=== PATIENT | male | born 1990 | race Caucasian/White ===

== ENCOUNTER 2017-09-20 11:45 | Emergency (ER) | payer BC ==
[~2017-09-20] VITALS: Ht 182.9 cm; Wt 66.2 kg
[~2017-09-20 11:45] MED LIST: BACTRIM,SEPT1 TABLET PO; CLEOCIN150 MG PO; FIORICET,ESG1 TABLET PO; FLEXERIL10 MG PO; KEFLEX500 MG PO; MEDROL DOSEPAK4 MG PO; MOTRIN800 MG PO; NAPROSYN500 MG PO; NOHOMEMEDS; PRILOSEC40 MG PO; VALIUM5 MG PO; VICODIN 5-3001 EACH PO; ZOFRAN ODT4 MG PO; ZOFRAN4 MG PO; nohome
[2017-09-20 12:27] LABS: HEMATOCRIT 37.7 % (38.0-50.0); HEMOGLOBIN 13.4 G/DL (12.5-16.6); MCH 28.6 PG (29.0-34.0); MCHC 35.5 G/DL (30.0-36.0); MCV 80.4 FL (86-99); PLATELET COUNT 470 K/uL (156-360); RBC DIS.WIDTH-CV 12.2 % (11.8-14.6); RBC DIS.WIDTH-SD 35.1 % (39-53); RED BLOOD COUNT 4.69 M/uL (4.00-5.50)
[2017-09-20 12:36] LABS: CHLORIDE 104 mEq/L (99-109); POTASSIUM 3.9 mEq/L (3.7-5.4); SODIUM 141 mEq/L (136-147)
[2017-09-20 12:38] LABS: GLUCOSE 125 mg/dL (70-99)
[2017-09-20 12:41] LABS: GFR ESTIMATE (CALCULATED) > 59 mL/min/ (58.99-99999); SERUM ETHYL ALCOHOL < 10 mg/dL
[2017-09-20 12:42] LABS: UREA NITROGEN (BUN) 15 mg/dL (9-23)
[2017-09-20 12:57] LABS: AMPHETAMINE PRESUMPTIVE POSITIVE (500 ng/mL); COCAINE NEGATIVE (150 ng/mL); METHAMPHETAMINE NEGATIVE (500 ng/mL); OPIATES (MORPHINE) NEGATIVE (100 ng/mL); PHENCYCLIDINE NEGATIVE (25 ng/mL); THC CANNABINOIDS PRESUMPTIVE POSITIVE (50 ng/mL)
[2017-09-20 12:58] LABS: BARBITURATES NEGATIVE (200 ng/mL); BENZODIAZEPINES NEGATIVE (150 ng/mL); BUPRENORPHINE NEGATIVE (10 ng/mL); METHADONE PRESUMPTIVE POSITIVE (200 ng/mL); OXYCODONE NEGATIVE (100 ng/mL); PROPOXYPHENE NEGATIVE (300 ng/mL); TRICYCLIC ANTIDEPRESSANTS NEGATIVE (300 ng/mL)
[2017-09-20 17:48] VITALS: BP 133/98
== END 2017-09-20 17:50 | disposition home or self-care (01) ==
LOC: EME 11:45
PROVIDERS: Emergency Medicine Emergency Medical Services
DX: F11.23 Opioid dependence with withdrawal (principal); F15.10 Other stimulant abuse, uncomplicated; F12.10 Cannabis abuse, uncomplicated; F19.10 Other psychoactive substance abuse, uncomplicated; F17.200 Nicotine dependence, unspecified, uncomplicated
CPT/HCPCS: 80048; 84999; 85027; 90839; 99281; 99284; G0480